=== PATIENT | female | born 1995 | race Asian ===

== ENCOUNTER 2022-01-13 13:05 | Emergency (ER) | payer OTHER ==
[~2022-01-13] VITALS: Ht 157.5 cm; Wt 65.8 kg
--- NOTE | 2022-01-13 14:09 | NUR ---
DR MAY AT BEDSIDE FOR EVALUATION.
[2022-01-13] MEDS ORDERED: LORAZEPAM 0.5 MG TABLET PO ONE (14:30)
[2022-01-13 14:59] VITALS: BP 121/55
--- NOTE | 2022-01-13 14:59 | NUR ---
Patient discharged to home in stable condition. Written and verbal after care instructions given. Patient verbalizes understanding of instructions. Stressed follow up or return to ER for worsening s/s.
== END 2022-01-13 15:20 | disposition home or self-care (01) ==
LOC: ER 14:01
DX: S69.81XA Other specified injuries of right wrist, hand and finger(s), initial encounter (principal); W86.1XXA Exposure to industrial wiring, appliances and electrical machinery, initial encounter; Y92.511 Restaurant or cafe as the place of occurrence of the external cause; Y99.0 Civilian activity done for income or pay; R00.1 Bradycardia, unspecified
CPT/HCPCS: 93005; A4663